=== PATIENT | female | born 1980 | race Caucasian/White ===

== ENCOUNTER → 2024-12-23 13:48 | Outpatient (BNVA) | payer BC, MEDICAID, SELFPAY | PROVIDERS: PCP Nurse Practitioner; Visit Provider Student in an Organized Health Care Education/Training Program | DX: G56.03 Carpal tunnel syndrome, bilateral upper limbs (principal) | CPT/HCPCS: 73130 ==

== ENCOUNTER → 2025-01-13 14:32 | Outpatient (BNVA) | payer BC, MEDICAID, SELFPAY | PROVIDERS: PCP Nurse Practitioner; Visit Provider Nurse Practitioner | DX: M25.561 Pain in right knee (principal); M25.562 Pain in left knee | CPT/HCPCS: 73562 ==

== ENCOUNTER 2025-01-15 09:49 | Day surgery (SDC) | payer BC, MEDICAID, SELFPAY ==
[2025-01-15] VITALS (7 sets, daily range): BP systolic 107–138; BP diastolic 74–85; PULSE 60–78; RESP 16–18; TEMP 36.2–36.4; O2SAT 98–100; BMI 33.0
--- NOTE | 2025-01-15 10:12 | W.PM.OPSUD ---
Surgery/Procedure H&P Update DATE OF PROCEDURE: January 15, 2025 DATE H&P PERFORMED: 12/23/24 H&P UPDATE INFORMATION: I have reviewed H&P completed within last 30 days, I have examined patient prior to procedure and No changes to prior documentation PREOP DIAGNOSIS: Left carpal tunnel syndrome PRIMARY INDICATION FOR PROCEDURE: Left carpal tunnel syndrome PLANNED PROCEDURE: Operation Date: 01/15/25 11:35 Proposed Procedures p Carpal Tunnel Release(Left) - Reji Bernard DO
[2025-01-15] MEDS: scopolamine 1 mg PATCH 1 PATCH TRANSDERMA (10:29)
[2025-01-15] MEDS: sodium chloride 0.9% 1,000 ML 30 ML IV (10:30)
[2025-01-15] MEDS: ketorolac 30 mg/mL INJ IVP (10:30)
[2025-01-15] MEDS: acetaminophen 1,000 MG/100 ML PIGGYBACK 400 MG IV (10:37)
--- NOTE | 2025-01-15 11:11 | ANES.PREANE2 ---
Pre-Anesthetic Assessment Height/Weight: Height 1.73 m Weight 98.43 kg Temp Pulse Resp BP Pulse Ox O2 Del Method 97.5 F L 78 17 131/83 100 Room Air 01/15/25 10:17 01/15/25 10:17 01/15/25 10:17 01/15/25 10:17 01/15/25 10:17 01/15/25 10:17 Preop Diagnosis: Left carpal tunnel syndrome Operation Date: 01/15/25 11:35 Proposed Procedures p Carpal Tunnel Release(Left) - Reji Bernard DO Familial anesthetic complications: None Was Beta Tigist taken within 24 hours: N/A Was Clonidine taken within 24 hours: N/A Last intake: Intake Last Liquid Date 01/14/25 Last Liquid Time 21:00 Last Solid Date 01/14/25 Last Solid Time 21:00 Social No alcohol and No tobacco Exam alert, oriented x 3, clear to auscultation bilaterally and regular rate & rhythm Airway Mallampati: Class II Dentition: chipped (multiple chipped and repaired) Neuropsych Neuropathy Anesthetic Plan ASA status: 2 Anesthesia: MAC Risk of > 500 ml blood loss (7ml/kg in children): No Medications/Allergies Home Medications ?Medication ?Instructions ?Recorded ?Confirmed ?Last Taken ?Type gabapentin 100 mg capsule 100 mg PO BEDTIME #30 caps 08/31/24 01/15/25 01/10/25 Rx celecoxib 100 mg capsule (Celebrex) 100 mg PO BID #60 caps 01/13/25 01/15/25 01/14/25 Rx hydroxyzine HCl 25 mg tablet 25 mg PO BEDTIME 01/14/25 01/15/25 12/31/24 History venlafaxine 37.5 mg 37.5 mg PO DAILY 01/14/25 01/15/25 01/14/25 History capsule,extended release 24 hr Allergies Allergy/AdvReac Type Severity Reaction Status Date / Time No Known Allergies Allergy Verified 01/15/25 10:10 Current Medications Generic Name Dose Route Start Last Admin Trade Name Freq PRN Reason Stop Dose Admin Sodium Chloride 1,000 mls @ 30 mls/hr 01/15/25 10:00 01/15/25 10:30 Sodium Chloride 0.9% IV 01/16/25 09:59 30 mls/hr .Q24H GEMMA Administration PFSH Anesthesia Social History Smoking and tobacco/nicotine status: never used tobacco/nicotine Female Reproductive History Spontaneous abortions: No Data Anesthesia Cardiac Studies: No Data to Display
[2025-01-15] MEDS: ceFAZolin 2,000 MG in sodium chloride 0.9% (plus) 50 ML 100 MG IV (11:26)
[2025-01-15] MEDS: ROPivacaine 0.5% SDV 30 mL 150 MG INJECTION (11:42)
[2025-01-15] MEDS: lidocaine-epi 1% 20 mL INJ INJECTION (11:42)
--- NOTE | 2025-01-15 11:57 | W.PM.BPON ---
Date of Procedure: 01/15/2025 Surgeon: Reji Bernard DO Distribution Supervisor(s): None Procedure(s) performed: Left carpal tunnel release Findings of the procedure(s): Patient underwent procedure as planned without issues or complications Estimated blood loss: 2 mL Specimen(s) removed: none Post-operative diagnosis: Left carpal tunnel syndrome
--- NOTE | 2025-01-15 11:58 | PM.OP ---
Operative Report Date of procedure: January 15, 2025 Surgeon: Reji Bernard DO Procedure: Preop Diagnosis: Left Carpal Tunnel Syndrome Post-op diagnosis: Same Procedure done: 1. Left carpal tunnel release Surgeon: Reji Bernard DO Anesthesia: MAC (Local) Estimated blood loss: 2 mL Tourniquet time 11 minutes IV fluids: See anesthesia record Complications: None Findings: See operative report narrative Condition: stable Disposition: same day Brief History: Patient is a pleasant 44 year-old female with left carpal tunnel syndrome. Patient has been worked up in the outpatient setting findings and physical examination consistent with this. Patient nerve conduction studies consistent with carpal tunnel syndrome. We detailed out patient's risk benefits complication alternatives with surgical and nonsurgical treatment options. Through shared decision making, patient agrees to proceed with surgical intervention of the left carpal tunnel release . Patient understands and agrees with current plan. All questions answered. Patient elects to proceed with surgical intervention with carpal tunnel release. Procedure: Patient seen and evaluated in the preoperative holding area. Consent was reviewed and signed with patient. Correct extremity was marked. Patient was seen evaluated by the anesthesia department once cleared for surgery was brought back to the operative suite. Patient was kept on [facility] in supine position all bony prominences were well-padded patient properly secured to the bed. Left upper extremity was then placed onto an armboard. A nonsterile tourniquet was applied to the left upper arm. Patient underwent anesthesia per the anesthesia department. Patient's left upper extremity was then prepped and draped in standard orthopedic fashion. Final timeout performed. Patient received appropriate preoperative antibiotics. Under sterile aseptic technique patient received local anesthesia over the preplanned carpal tunnel incision site. Esmarch was used to exsanguinate the left upper extremity and tourniquet was insufflated to 250 mmHg. A standard mini open left carpal tunnel incision was made. Starting distally at Batista's cardinal line in line with the fourth ray extending proximally distal to the wrist crease centered over the carpal tunnel. Sharp scalpel incision was made through skin and subcutaneous tissue. Self-retaining retractor was placed and the palmar fascia was identified. This was then split longitudinally and direct visualization of the transverse carpal ligament was then made. I then utilizing scalpel feathered through the transverse carpal ligament until I entered the floor of the transverse carpal tunnel ligament into the carpal tunnel. Next I switched to dissection scissors and completed my release of the transverse carpal ligament distally with care to protect the recurrent motor branch. I completely released into the palmar fat and until no entrapment was noted distally. Care was made to protect the superficial palmar arch during my distal dissection. Next, nasal speculum placed proximally for retraction of soft tissue on top of the Transverse carpal ligament. Next the contents of the carpal tunnel where protected and and subsequently utilizing dissection scissors under loupe magnification completely released the transverse carpal ligament proximally into the antebrachial fascia. Care was made to protect the palmar cutaneous branch by keeping my scissors curved ulnarly. Once completely released, I then placed my [place] and had appropriate decompression of the carpal tunnel proximally as well as distally. I then inspected the contents of the carpal tunnel which showed an hourglass shape of the median nerve showing its compression. No masses were noted. Tendons appeared healthy. Wound was then thoroughly irrigated. Tourniquet deflated. Hemostasis satisfactory with bipolar electrocautery. I then closed the incision with interrupted nylon stitches. Xeroform 4 x 4's and a bulky soft dressing was applied to the left upper extremity. Patient was then awakened from anesthesia and taken to PACU in stable condition. Patient tolerated procedure without complications. Disposition: Patient taken to PACU in stable condition recovering well. Dressing clean dry and intact. Patient will receive appropriate discharge instructions as well as pain medication postoperatively. Patient to follow-up with me in the office in 2 weeks. They understand they may be weightbearing as tolerated to the left hand. Patient should keep incision clean dry and intact. Patient understands if any questions or concerns may contact the office.
[2025-01-15 12:02] LABS: OR HCG Qualitative Urine Negative (Negative)
--- NOTE | 2025-01-15 12:55 | ANE.PACU2 ---
Inpatient post-anesthesia follow up: Airway intact: Yes Vital signs: Temperature 97.2 F Pulse Rate 61 Respiratory Rate 18 Blood Pressure 138/83 Pulse Oximetry 100 Oxygen Delivery Me thod Room Air Oxygen Flow Rate Fraction of Inspir ed Oxygen Hydration adequate: Yes Nausea and vomiting: No Pain level: 1 Mental status: Baseline
== END 2025-01-15 12:53 | disposition home or self-care (01) ==
PROVIDERS: Anesthesiology; PCP Nurse Practitioner; Visit Provider Student in an Organized Health Care Education/Training Program
PROC: (CPT 64721; principal; 2025-01-15 11:25)
DX: G56.02 Carpal tunnel syndrome, left upper limb (principal); Z79.899 Other long term (current) drug therapy
CPT/HCPCS: 64721; 81025; J0131; J0690; J1885; J2250; J2704; J2795; J3010; J7030; J9999

== ENCOUNTER → 2025-05-04 11:08 | Outpatient (BNVA) | payer BC, MEDICAID, SELFPAY | PROVIDERS: PCP Nurse Practitioner; Visit Provider Nurse Practitioner | DX: R10.9 Unspecified abdominal pain (principal) | CPT/HCPCS: 86003; 86008 ==

== ENCOUNTER 2025-05-06 05:51 | Day surgery (SDC) | payer BC, MEDICAID, SELFPAY ==
[2025-05-06] VITALS (8 sets, daily range): BP systolic 91–130; BP diastolic 65–77; PULSE 70–89; RESP 14–18; TEMP 36.1; O2SAT 96–100; BMI 33.4
[2025-05-06] MEDS: acetaminophen 1,000 MG/100 ML PIGGYBACK 400 MG IV (06:38)
--- NOTE | 2025-05-06 06:46 | ANES.PREANE2 ---
Pre-Anesthetic Assessment Height/Weight: Height 5 ft 8 in Weight 220 lb Temp Pulse Resp BP Pulse Ox O2 Del Method 97.0 F L 79 16 114/77 99 Room Air 05/06/25 06:05 05/06/25 06:05 05/06/25 06:05 05/06/25 06:05 05/06/25 06:05 05/06/25 06:05 Preop Diagnosis: Carpal tunnel syndrome Operation Date: 05/06/25 07:40 Proposed Procedures p RIGHT Carpal Tunnel Release(Right) - Reji Bernard, DO Was Beta Tigist taken within 24 hours: N/A Was Clonidine taken within 24 hours: N/A Last intake: Intake Last Liquid Date 05/05/25 Last Liquid Time 23:00 Last Solid Date 05/05/25 Last Solid Time 22:30 Social No alcohol and No tobacco Exam alert, oriented x 3, clear to auscultation bilaterally and regular rate & rhythm Airway Submandibular: within normal limits Cervical ROM: within normal limits Mallampati: Class II Dentition: chipped and full Anesthetic Plan ASA status: 2 Anesthesia: MAC Other: No prior issues with anesthesia NPO since yesterday evening Patient had recent procedure on her other arm and did well under MAC anesthesia METs greater than 4 Plan for MAC anesthesia with local via surgeon Medications/Allergies Home Medications ?Medication ?Instructions ?Recorded ?Confirmed ?Last Taken ?Type venlafaxine 37.5 mg 37.5 mg PO DAILY 01/14/25 05/06/25 05/05/25 History capsule,extended release 24 hr gabapentin 100 mg capsule 100 mg PO BEDTIME #90 caps 02/02/25 05/06/25 04/21/25 Rx celecoxib 200 mg capsule (Celebrex) 200 mg PO BID #60 caps 02/10/25 05/06/25 05/04/25 Rx hydroxyzine HCl 25 mg tablet See Rx Instructions .Route 04/20/25 05/06/25 05/05/25 Rx .COMPLEX #30 tabs Allergies Allergy/AdvReac Type Severity Reaction Status Date / Time No Known Allergies Allergy Verified 05/06/25 06:12 Current Medications Generic Name Dose Route Start Last Admin Trade Name Freq PRN Reason Stop Dose Admin Sodium Chloride 1,000 mls @ 30 mls/hr 05/06/25 06:15 05/06/25 06:38 Sodium Chloride 0.9% IV 05/07/25 06:14 30 mls/hr .Q24H GEMMA Administration PFSH Anesthesia Social History Smoking and tobacco/nicotine status: never used tobacco/nicotine Female Reproductive History Spontaneous abortions: No
[2025-05-06 06:50] LABS: OR HCG Qualitative Urine Negative (Negative)
--- NOTE | 2025-05-06 07:00 | W.PM.OPSFHP ---
Same Day Surgery H&P Indication for Procedure/HPI DATE OF PROCEDURE: May 06, 2025 CHIEF COMPLAINT/INDICATIONFOR SURGICAL PROCEDURE: Right carpal tunnel syndrome PREOP DIAGNOSIS: Right carpal tunnel syndrome PLANNED PROCEDURE: Operation Date: 05/06/25 07:40 Proposed Procedures p RIGHT Carpal Tunnel Release(Right) - Reji Bernard, DO Medications/Allergies* Home Medications ?Medication ?Instructions ?Recorded ?Confirmed ?Type venlafaxine 37.5 mg 37.5 mg PO DAILY 01/14/25 05/06/25 History capsule,extended release 24 hr Allergies/Adverse Reactions Allergy/AdvReac Type Severity Reaction Status Date / Time No Known Allergies Allergy Verified 05/06/25 06:12 Current Medications: Generic Name Dose Route Start Last Admin Trade Name Freq PRN Reason Stop Dose Admin Sodium Chloride 1,000 mls @ 30 mls/hr 05/06/25 06:15 05/06/25 06:38 Sodium Chloride 0.9% IV 05/07/25 06:14 30 mls/hr .Q24H GEMMA Administration Pertinent History/Comorbid Conditions* Social History Smoking and tobacco/nicotine status: never used tobacco/nicotine Pertinent Exam Findings alert, oriented x 3, operative site marked and procedure specific exam findings Please refer to detailed Ricky examination on 03/05/2025 listed below: Right hand exam-positive Tinel's and positive Phalen's test. No thenar atrophy and mild thenar muscle weakness. Full range of motion in fingers and wrist and fingers are warm and well-perfused with normal cap refill under 2 seconds. Radial pulse 2+, no intrinsic muscle weakness noted. Elbow exam-negative Tinel's test Recommendations Risks and benefits of procedure reviewed and Patient/family agree to proceed Surgery/Procedure today Other Plans: Plan to proceed to the OR today for right carpal tunnel release. Patient's son well on the left side and ready to proceed with surgical intervention on the right. Patient understands enzymes procedure risk benefits complication alternatives surgery through shared decision making patient like to proceed with surgical invention. All questions answered at this time. Coding Level of Care Code Acute Code for Tee Marlys
[2025-05-06] MEDS: ondansetron 2 mg/ML SDV 2 mL 4 MG IVP (07:20)
[2025-05-06] MEDS: ceFAZolin 2,000 MG in sodium chloride 0.9% (plus) 50 ML 100 MG IV (07:54)
[2025-05-06] MEDS: lidocaine-epi 1% 20 mL INJ INJECTION (08:18)
[2025-05-06] MEDS: ROPivacaine 0.5% SDV 30 mL 150 MG INJECTION (08:19)
--- NOTE | 2025-05-06 08:26 | PM.OP ---
Operative Report Date of procedure: May 06, 2025 Surgeon: Reji Bernard DO Procedure: Preop Diagnosis: Right Carpal Tunnel Syndrome Post-op diagnosis: Same Procedure done: 1. Right carpal tunnel release Surgeon: Reji Bernard DO Anesthesia: MAC (Local) Estimated blood loss: 2 mL Tourniquet time [11]minutes IV fluids: See anesthesia record Complications: None Findings: See operative report narrative Condition: stable Disposition: same day Brief History: Patient is a pleasant [45 ]year-old [F ] with right carpal tunnel syndrome. Patient has been worked up in the outpatient setting findings and physical examination consistent with this. Patient nerve conduction studies consistent with carpal tunnel syndrome. We detailed out patient's risk benefits complication alternatives with surgical and nonsurgical treatment options. Through shared decision making, patient agrees to proceed with surgical intervention of the right carpal tunnel release . Patient understands and agrees with current plan. All questions answered. Patient elects to proceed with surgical intervention with carpal tunnel release. Procedure: Patient seen and evaluated in the preoperative holding area. Consent was reviewed and signed with patient. Correct extremity was marked. Patient was seen evaluated by the anesthesia department once cleared for surgery was brought back to the operative suite. Patient was kept on [facility] in supine position all bony prominences were well-padded patient properly secured to the bed. Right upper extremity was then placed onto an armboard. A nonsterile tourniquet was applied to the Right upper arm. Patient underwent anesthesia per the anesthesia department. Patient's Right upper extremity was then prepped and draped in standard orthopedic fashion. Final timeout performed. Patient received appropriate preoperative antibiotics. Under sterile aseptic technique patient received local anesthesia over the preplanned carpal tunnel incision site. Esmarch was used to exsanguinate the Right upper extremity and tourniquet was insufflated to 250 mmHg. A standard mini open Right carpal tunnel incision was made. Starting distally at Batista's cardinal line in line with the fourth ray extending proximally distal to the wrist crease centered over the carpal tunnel. Sharp scalpel incision was made through skin and subcutaneous tissue. Self-retaining retractor was placed and the palmar fascia was identified. This was then split longitudinally and direct visualization of the transverse carpal ligament was then made. I then utilizing scalpel feathered through the transverse carpal ligament until I entered the floor of the transverse carpal tunnel ligament into the carpal tunnel. Next I switched to dissection scissors and completed my release of the transverse carpal ligament distally with care to protect the recurrent motor branch. I completely released into the palmar fat and until no entrapment was noted distally. Care was made to protect the superficial palmar arch during my distal dissection. Next I utilized a nasal speculum placed on top of the transverse carpal ligament and utilize this to retract the subcutaneous fat and tissue and under direct loupe magnification was able to identify the transverse carpal ligament. Next I then protected the contents of the carpal tunnel and subsequently utilizing dissection scissors under loupe magnification completely released the transverse carpal ligament proximally into the antebrachial fascia. Care was made to protect the palmar cutaneous branch by keeping my scissors curved ulnarly. Once completely released, I then placed my [place] and had appropriate decompression of the carpal tunnel proximally as well as distally. I then inspected the contents of the carpal tunnel which showed an hourglass shape of the median nerve showing its compression. No masses were noted. Tendons appeared healthy. Wound was then thoroughly irrigated. Tourniquet deflated. Hemostasis satisfactory with bipolar electrocautery. I then closed the incision with interrupted nylon stitches. Xeroform 4 x 4's and a bulky soft dressing was applied. Patient was then awakened from anesthesia and taken to PACU in stable condition. Patient tolerated procedure without complications. Disposition: Patient taken to PACU in stable condition recovering well. Dressing clean dry and intact. Patient will receive appropriate discharge instructions as well as pain medication postoperatively. Patient to follow-up with me in the office in 2 weeks. They understand they may be weightbearing as tolerated to the right hand. Patient should keep incision clean dry and intact. Patient understands if any questions or concerns may contact the office.
--- NOTE | 2025-05-06 08:53 | W.PM.BPON ---
Date of Procedure: [May 06, 2025] Surgeon: [Dr. Bernard DO] Manager Property(s): [N/A] Procedure(s) performed: [Left carpal tunnel release] Findings of the procedure(s): [Left carpal tunnel syndrome. Procedure went well as planned] Estimated blood loss: [3 mL] Specimen(s) removed: [N/A] Post-operative diagnosis: [Left carpal tunnel syndrome]
--- NOTE | 2025-05-06 09:40 | ANE.PACU2 ---
Inpatient post-anesthesia follow up: Airway intact: Yes Vital signs: Temperature 97 F Pulse Rate 70 Respiratory Rate 18 Blood Pressure 113/65 Pulse Oximetry 100 Oxygen Delivery Me thod Room Air Oxygen Flow Rate Fraction of Inspir ed Oxygen Hydration adequate: Yes Nausea and vomiting: No Pain level: 1 Mental status: Baseline
== END 2025-05-06 09:41 | disposition home or self-care (01) ==
PROVIDERS: Student in an Organized Health Care Education/Training Program; PCP Nurse Practitioner; Visit Provider Student in an Organized Health Care Education/Training Program
PROC: (CPT 64721; principal; 2025-05-06 07:40)
DX: G56.01 Carpal tunnel syndrome, right upper limb (principal)
CPT/HCPCS: 64721; 81025; J0131; J0690; J1885; J2405; J2704; J2795; J3010; J7030; J9999